=== PATIENT | female | born 1980 | race Two or more races ===

== ENCOUNTER 2024-12-27 04:37 | Emergency (ER) | payer SELFPAY ==
[2024-12-27 05:01] VITALS: BP 116/78; PULSE 78; RESP 19; TEMP 37.2; O2SAT 99
[2024-12-27 05:12] VITALS: BMI 35.7
[2024-12-27] MEDS: ONDANSETRON INJ 2 MG/ML INJ 2 ML 4 MG IVP (05:19)
[2024-12-27] MEDS: SODIUM CHLORIDE 0.9% 1000 ML 1,000 ML 999 ML IV (05:19)
[2024-12-27 05:32] LABS: Basophils # (Auto) 0.1 Thou/mm3 (0.0-0.2); Basophils % (Auto) 1 % (0-2.5); Eosinophils # (Auto) 0.1 Thou/mm3 (0.0-0.5); Eosinophils % (Auto) 1 % (0-10); Hematocrit 40.7 % (36.0-46.0); Hemoglobin 13.3 g/dL (12.0-16.0); Immature Granulocytes Auto 0.03 Thou/mm3 (0.00-0.00); Lymphocytes # (Auto) 2.4 Thou/mm3 (1.0-4.8); Lymphocytes % (Auto) 25 % (10-50); Mean Corpuscular HGB Conc 32.7 g/dl (31.0-37.0); Mean Corpuscular Hemoglobin 30.1 pg (25.0-35.0); Mean Corpuscular Volume 92 fL (80-100); Monocytes # (Auto) 0.6 Thou/mm3 (0.0-0.8); Monocytes % (Auto) 6 % (0-12); Neutrophils # (Auto) 6.7 Thou/mm3 (1.8-7.7); Neutrophils % (Auto) 68 % (37-80); Nucleated Red Blood Cell # 0.00 Thou/mm3 (0.00-0.00); Nucleated Red Blood Cell % 0 /100 WBC (0); Platelet Count 210 Thou/mm3 (140-440); RDW Standard Deviation 46.1 fL (36.4-46.3); Red Blood Count 4.42 Miln/mm3 (4.00-5.20); White Blood Count 9.8 Thou/mm3 (3.6-11.0)
[2024-12-27 05:57] LABS: Alanine Aminotransferase 21 U/L (10-49); Albumin, Serum 4.6 gm/dL (3.5-5.0); Albumin/Globulin Ratio 1.8 (1.2-2.2); Alcohol, Blood Medical 291.0 mg/dL (0-10.0); Alkaline Phosphatase 64 U/L (46-116); Anion Gap 11 (7-16); Aspartate Amino Transferase 35 U/L (0-34); BUN/Creatinine Ratio 13 Ratio (12-20); Beta HCG,Quantitative < 1 mIU/mL (<5.0); Bilirubin,Total 0.4 mg/dL (0.3-1.2); Blood Urea Nitrogen 8 mg/dL (9-23); Calcium 8.3 mg/dL (8.3-10.6); Calcium (Corrected) 8.3 mg/dL (8.5-10.1); Carbon Dioxide 24.6 mMol/L (20.0-31.0); Chloride 103 mMol/L (98-107); Creatinine (Component) 0.6 mg/dL (0.6-1.3); Estimated Creatinine Clearance 138.3 mL/min (>60); Globulin 2.6 gm/dL (2.3-3.5); Glucose 99 mg/dL (74-106); Osmolality,Calculated 275 (275-295); Potassium 4.0 mMol/L (3.4-5.1); Sodium 139 mMol/L (136-145); Total Protein 7.2 gm/dL (5.7-8.2); eGFR > 60 See Note
--- NOTE | 2024-12-27 06:29 | PD.EDNV ---
Nausea/Vomit./Diarrhea-RME/HPI General Chief complaint: Nausea/Vomiting/Diarrhea Stated complaint: alcohol intoxication, no obvious signs of trauma Time Seen by Provider: 12/27/24 06:29 Source: family Arrival date/time: 12/27/24 04:37 Mode of arrival: ambulatory RME / HPI RME / HPI Narrative: DR. CONCHA OCHOA ED EVALUATION: Patient is a 44-year-old female with medical history notable for prior thyroid cancer status post thyroidectomy currently on levothyroxine is in the emergency department with concerns for weakness nausea vomiting after having drank a significant amount of alcohol per the . Patient's states that the patient had been feeling fine up until this moment, had not been complaining of anything no chest pain no fever no cough no belly pain had not had any diarrhea no travel. Nobody had been sick at home. Denies any drug use. Patient did not fall, no no use of aspirin or thinners. When patient started vomiting, the helped the patient to the ground and put her on the side so she can vomit. Related Data Allergies Allergy/AdvReac Type Severity Reaction Status Date / Time No Known Allergies Allergy Verified 12/27/24 05:12 Review of Systems Review of Systems Systems Reviewed: All systems reviewed, normal except as documented Past Medical History Past Medical History ENDOCRINE: Positive Endocrine Disorders Family History FAMILY HISTORY: Positive Family Endocrine Disorders and Family Cancer Social History SMOKING STATUS: Never smoker SUBSTANCE USE: does not use ALCOHOL: Never ED Exam General General appearance: Present in no apparent distress and appears intoxicated Head Head exam: Present atraumatic and normocephalic Eye Eye exam: Present PERRL, EOMI and other (Patient with color contacts in place,) ENT ENT exam: Present normal exam Neck Neck exam: Present normal inspection; Absent tenderness Chest Chest inspection: Present normal inspection and symmetric chest wall rise Respiratory Respiratory exam: Absent respiratory distress Cardiovascular Cardiovascular exam: Present regular rate and normal rhythm Abdominal Exam Abdominal exam: Present soft; Absent distention or tenderness Extremities Exam Extremities exam: Present normal inspection; Absent tenderness Back Exam Back exam: Absent tenderness Neurological Exam Neurological exam: Present other (Sleepy appearing toxic moving all 4 extremities, nods yes no to questions however does not want to participate in the exam at this time) Psychiatric Psychiatric exam: Present flat affect Skin Skin exam: Present warm and dry Course Quality Measures none Orders Category Date Time Status Alcohol, Blood Medical Stat Lab 12/27/24 05:22 Completed Beta HCG,Quantitative Stat Lab 12/27/24 05:22 Completed CBC Stat Lab 12/27/24 05:22 Completed CMP [Comprehensive Metabolic Panel] Stat Lab 12/27/24 05:22 Completed Calcium Carbonate Med 12/27/24 08:41 Once 600 mg PO X1 ONE Folic Acid Med 12/27/24 06:30 Discontinued 1 mg PO X1 ONE Ondansetron Inj [Zofran Inj] Med 12/27/24 05:13 Discontinued 4 mg .ROUTE .STK-MED ONE Ondansetron Inj [Zofran Inj] Med 12/27/24 05:06 Discontinued 4 mg IVP X1 ONE Sodium Chloride 0.9% 1000 ml [Ns] 1,000 ml Med 12/27/24 05:07 Discontinued IV 999 mls/hr Thiamine [Vitamin B-1] Med 12/27/24 06:30 Discontinued 100 mg PO X1 ONE Vital Signs Vital signs: Vital Signs Temperature 98.9 F 12/27/24 05:01 Pulse Rate 78 12/27/24 05:01 Respiratory Rate 19 12/27/24 05:01 Blood Pressure 116/78 12/27/24 05:01 Pulse Oximetry (%) 99 12/27/24 05:01 Oxygen Delivery Method Room Air 12/27/24 05:01 Nausea/Vomiting/Diarrhea MDM Narrative MDM Narrative:: Patient is a 44-year-old female is in the emergency department concerns for nausea vomiting after consuming heavy alcohol. Vital signs and exam as listed. Concern for alcohol intoxication, patient not in respiratory distress, breathing comfortably, satting well on room air, less likely aspiration. Patient without any signs of trauma less likely acute intracranial injury. Patient moving all 4 extremities, no signs of trauma in extremities either. Patient evaluated by overnight provider, they ordered labs. Also ordered fluids. I also ordered vitamins. On my assessment patient is resting comfortably in bed, moving all 4 extremities, no signs of trauma, no tenderness palpation on her cervical thoracic nor lumbar spine, nor on her 4 extremities on her face, no signs of trauma anywhere. Labs without acute hematologic or significant metabolic abnormality. Patient alcohol level is 291. Given that patient does not have any signs of trauma, and patient's was with her the whole time, we will hold off on CT at this time. Will observe the patient in the emergency department for period of time 8:39a on re-evaluation patient GCS, no FNDs, moving all extremities, tolerating oral intake, ambulating w/o any difficulty. Patient will be dc'd in the care of her . Will provide calcium repletion as well given hx of hypocalcemia and low calcium on our assessments. Rtia, Laxmi Dozier am scribing for and in the presence of Dr. Dempsey. Patient data External records reviewed:: [facility] previous records and EMS form Clinical information provided by:: patient and EMS Social determinants that could affect healthcare access:: none Patient has the following chronic illnesses:: Medical history notable for prior thyroid cancer status post thyroidectomy currently on levothyroxine. No use of aspirin or thinners. How is presenting disease/condition affected by chronic disease/condition?: uneffected by Evaluation data The following diagnostics were reviewed and interpreted by me:: lab results Lab and/or radiology exams considered but not ordered:: none Interpretation Summary: See MDM narrative above. Medications / Prescriptions Medications / Prescriptions considered but not ordered:: none Medication administrations:: Medication Administration History Calcium Carbonate (Calcium Carbonate 600 Mg Tablet) 600 mg PO X1 ONE Stop: 12/27/24 08:42 Discontinued Medications Folic Acid (Folic Acid 1 Mg Tablet) 1 mg PO X1 ONE Stop: 12/27/24 06:31 Last Admin: 12/27/24 08:30 Dose: 1 mg Documented By: SHANA Sodium Chloride (Ns) 1,000 mls @ 999 mls/hr IV .Q1H1M ONE Stop: 12/27/24 06:07 Last Admin: 12/27/24 05:19 Dose: 999 mls/hr Documented By: MAN Ondansetron HCl (Ondansetron Inj 2 Mg/Ml Inj 2 Ml) 4 mg IVP X1 ONE; Protocol Stop: 12/27/24 05:07 Last Admin: 12/27/24 05:19 Dose: 4 mg Documented By: MAN Ondansetron HCl (Ondansetron Inj 2 Mg/Ml Inj 2 Ml) Confirm Administered Dose 4 mg .ROUTE .STK-MED ONE Stop: 12/27/24 05:14 Last Admin: 12/27/24 05:16 Dose: Not Given Documented By: MAN Non-Admin Reason: Other, see note Comments: duplicate Thiamine HCl (Thiamine 100 Mg Tablet) 100 mg PO X1 ONE Stop: 12/27/24 06:31 Last Admin: 12/27/24 08:30 Dose: 100 mg Documented By: SHANA see above Consultations Consultation(s) initiated? (list below): No Diagnosis Nausea Differential Diagnosis: other (Alcohol intoxication, electrolyte disturbance, and gastritis.) Most likely diagnosis given after review of the tests above:: Alcohol intoxication, nausea Admission Indicated Admission indicated?: not indicated Admission Request Was there a request for admission?: No Disposition Plan Disposition Plan: Discharge Discharge Attestation Discharge Attestation: The patient and all family members were given an opportunity to ask questions and understood the discharge instructions. Discharge instructions specifically effects, indications for sooner follow up or return to the emergency department, and the expected course of current diagnosis. Patient condition: Stable Discharge Plan Plan Patient Disposition: HOME (Self Care) Prescriptions/Referrals Referrals: No Primary/Family,Physician [Primary Care Provider] - In 1 week Problem List Clinical Impression: Nausea, Alcohol intoxication Patient/Caregiver Discharge Instructions Education Materials: ED Alcohol Intoxication Additional Instructions: I recommend that you eat a bland diet for the next 2 days, hydrate well. Take your medications as prescribed. Return immediately if you have worsening symptoms or new symptoms of concern Print Language: Georgian Stand Alone Forms: [facility] Info., Patient Portal Info Letter
--- NOTE | 2024-12-27 06:40 | PC.NURSE ---
attempted to give patient po medications that were ordered patient stated hell no I am not taking them right now. Will pass off to day shift nurse to try again at a later time.
--- NOTE | 2024-12-27 07:15 | PC.NURSE ---
ASSUME CARE FOR THIS PT AT THIS TIME, AND GOT REPORT FROM NIGHT RN. PT WAS CHANGED INTO [facility] WITH THE HELP OF HARRIETT RN AND TWO RN STUDENTS. AT BEDSIDE GIVEN AN UPDATE ON PLAN OF CARE, PT GCS 14, FOLLOWING COMMANDS. CALL LIGHT WITHIN REACH.
[2024-12-27 08:04] VITALS: BP 97/51; PULSE 74; RESP 16; TEMP 37.1; O2SAT 95
[2024-12-27] MEDS: THIAMINE 100 MG TABLET PO (08:30)
[2024-12-27] MEDS: FOLIC ACID 1 MG TABLET PO (08:30)
--- NOTE | 2024-12-27 08:45 | PC.NURSE ---
PT WAS TAKE TO THE BATHROOM, AND PT WAS ABLE TO WALK TO ROOM 19 WITH A STEADY GATE. PT IS A GCS 15, A&O X4. DR. KERN MADE AWARE.
[2024-12-27] MEDS: CALCIUM CARBONATE 600 MG TABLET PO (08:59)
[2024-12-27 09:06] VITALS: BP 114/64; PULSE 68; RESP 16; TEMP 36.5; O2SAT 99
== END 2024-12-27 09:06 | disposition home or self-care (01) ==
PROVIDERS: Emergency Medicine; Emergency Provider Emergency Medicine
DX: F10.129 Alcohol abuse with intoxication, unspecified (principal); Y90.8 Blood alcohol level of 240 mg/100 ml or more
CPT/HCPCS: 36415; 80053; 80320; 84702; 85025; 96361; 96374; 99283; J2405; J7030; A9270; G0480